=== PATIENT | male | born 1965 | race Caucasian/White ===

== ENCOUNTER 2023-12-05 22:44 | Emergency (ER) | payer OTHER ==
[~2023-12-05] VITALS: Ht 172.7 cm; Wt 74.8 kg
[2023-12-05 22:53] VITALS: BP 97/50; PULSE 110; RESP 16; TEMP 97.2; O2SAT 96
[2023-12-05] MEDS ORDERED: KETOROLAC 30 MG/ML VIAL IVP ONE (23:50)
[2023-12-05] MEDS ORDERED: NACL 0.9% 1,000 ML IV ONE (23:50)
[2023-12-06 01:34] VITALS: BP 118/67; PULSE 98; RESP 18; O2SAT 95
[2023-12-06] MEDS ORDERED: IBUP-2213 PO (01:37)
== END 2023-12-06 01:52 | disposition home or self-care (01) ==
LOC: MED 22:44
DX: M16.0 Bilateral primary osteoarthritis of hip (principal); M25.551 Pain in right hip; M25.552 Pain in left hip; Z79.899 Other long term (current) drug therapy
CPT/HCPCS: 72170; 96361; 96374; 99283; J1885; J7030